=== PATIENT | male | born 1990 | race Caucasian/White ===

== ENCOUNTER 2023-07-20 14:50 | Emergency (ER) | payer SELFPAY ==
[2023-07-20 14:56] VITALS: BP 128/54; PULSE 82; TEMP 36.7; O2SAT 96; BMI 23.8
--- NOTE | 2023-07-20 14:58 | XR_ITS ---
The [address] [address] Patient Name: CHRIST MILES MRN: [id number] date: 1990 Sex: M Assigned Patient Location: ER Current Patient Location: ER Accession/Order Number: [id number] Exam Date: 07/20/2023 15:05 Report Date: 07/20/2023 15:33 At the request of: RYNE BARRAZA Procedure: XR elbow RT min 3V IMAGES REVIEWED: XR elbow RT min 3V COMPARISON: None available. CLINICAL INDICATION: laceration FINDINGS/IMPRESSION: 1. No radiopaque foreign bodies seen in the soft tissues of the right elbow. 2. No acute osseous abnormality. 3. No effusion. Electronically authenticated by: ANIBAL MIKE Date: 07/20/2023 15:33
--- NOTE | 2023-07-20 15:02 | ED.UPPEXIN1 ---
HPI HPI - Extremity Injury (Upper) General Chief Complaint: Extremity Injury, Upper Stated Complaint: UPPER EXTREMITY INJURY Time Seen by Provider: 07/20/23 14:53 Source: patient Mode of arrival: walk-in Limitations: no limitations History of Present Illness HPI narrative: Patient is a 33-year-old male who presents to the ER for the evaluation of a laceration to the Right volar forearm/antecubital area of the elbow. Patient states he was at home using a chainsaw when he sustained a laceration. He has no other associated injuries. He states his last tetanus was 2 years ago. Bleeding is well-controlled at this time. Patient smells of alcohol at time of evaluation, he admits to nursing staff that he was drinking 1 beer . He drove himself to the emergency department. Related Data Home Medications ?Medication ?Instructions ?Recorded ?Confirmed No Known Home Medications 07/20/23 07/20/23 Previous Rx's ?Medication ?Instructions ?Recorded cephalexin 500 mg capsule 500 mg PO Q8H 7 days #21 caps 07/20/23 Allergies Allergy/AdvReac Type Severity Reaction Status Date / Time No Known Drug Allergies Allergy Verified 07/20/23 14:59 Opioid HPI Opioid Management Most Recent Pain and Opioid Data: Last Pain Scale 5 07/20/23 15:00 Review of Systems ROS Constitutional Denies: fever or chills Ears, nose, mouth, and throat Denies: throat pain or nasal congestion Respiratory Denies: shortness of breath Gastrointestinal Denies: nausea or vomiting Integumentary/Breast Denies: rash Hematologic/Lymphatic Denies: easy bruising or easy bleeding Exam Narrative Exam Narrative: Gen.: Awake, alert And oriented, in no distress Head: Normocephalic, atraumatic ENT: Moist mucous membranes Respiratory: No respiratory distress Extremities: Moves extremities equally, 5 cm x 1 cm laceration to the right volar forearm proximally, just distal to the antecubital area of the right elbow. Laceration is through the subcutaneous tissue. There is no visualized tendon laceration or muscle laceration. Patient with normal flexion and extension at the right elbow. 2+ right radial pulse. Psych: Normal mood and affect Neuro: No focal neuro deficit Skin: Warm, dry Constitutional Vital Signs, click to edit/add: Last Vital Signs Temp 98.1 F 07/20/23 14:56 Pulse 82 07/20/23 14:56 Resp 20 07/20/23 14:56 BP 128/54 07/20/23 14:56 Pulse Ox 96 07/20/23 14:56 O2 Del Method Nasal Cannula 07/20/23 14:56 Course Vital Signs Vital signs: Vital Signs Temperature 98.1 F 07/20/23 14:56 Pulse Rate 82 07/20/23 14:56 Respiratory Rate 20 07/20/23 14:56 Blood Pressure 128/54 07/20/23 14:56 Pulse Oximetry 96 07/20/23 14:56 Oxygen Delivery Method Nasal Cannula 07/20/23 14:56 Temperature 98.1 F 07/20/23 14:56 Pulse Rate 82 07/20/23 14:56 Respiratory Rate 20 07/20/23 14:56 Blood Pressure 128/54 07/20/23 14:56 Pulse Oximetry 96 07/20/23 14:56 Oxygen Delivery Method Nasal Cannula 07/20/23 14:56 MDM - Extremity Injury (Upper) MDM Narrative Medical decision making narrative: X-rays obtained. Laceration was repaired without difficulty. Please see procedure note for details. Keflex given for infection control for home, follow-up with urgent care or PCP for suture removal in 8 to 10 days. Patient is neurovascularly intact at discharge. Laceration repair: Done under sterile conditions. The use of Shur-Clens prep the area. Local injection with lidocaine with epi 1% was used, approximately 6 cc. The wound was irrigated copiously with normal saline. The wound was explored there was no evidence of foreign material. The laceration was approximated with 3-0 nylon. 7 simple interrupted sutures were placed. Patient tolerated the procedure well. The patient was neurovascularly intact post. the patient had bacitracin applied to the laceration and a dry sterile dressing was place. The patient will need to follow-up in the next 8-10 days for removal Medical Records Attestation: I reviewed the patient's medical records. Imaging Data XR elbow: Attestation: I have reviewed the pertinent imaging results. Discharge Plan Discharge Stand Alone Forms: Portal Instructions Chief Complaint: Extremity Injury, Upper Clinical Impression: Laceration of right elbow Patient Disposition: Home, Self-Care Time of Disposition Decision: 14:59 Condition: Good Prescriptions / Home Meds: New cephalexin 500 mg capsule 500 mg PO Q8H 7 Days Qty: 21 0RF No Action No Known Home Medications Print Language: [place]er Instructions: Laceration (ED) Additional Instructions: Sutures removed in 8-10 days with urgent care or your doctor
[2023-07-20] MEDS: LIDOCAINE HCL 1%-EPINEPHRINE 1:100,000 20 ML MDV INJ (15:18)
[2023-07-20] MEDS: BACITRACIN 0.9 GM PACKET 1 PACKET TOPICAL (15:19)
== END 2023-07-20 15:55 | disposition home or self-care (01) ==
PROVIDERS: Emergency Provider Emergency Medicine
DX: S51.011A Laceration without foreign body of right elbow, initial encounter (principal); W29.3XXA Contact with powered garden and outdoor hand tools and machinery, initial encounter
CPT/HCPCS: 12002; 73080; 99283